=== PATIENT | male | born 1940 | race Caucasian/White ===

== ENCOUNTER 2021-06-14 09:59 | Inpatient (IN) | payer BC ==
[~2021-06-14] VITALS: Ht 177.8 cm; Wt 82.1 kg
[2021-06-14 10:37] LABS: BASOPHILS % 0.6 % (0.0-2.0); EOSINOPHILS % 0.7 % (0.0-5.0); HEMATOCRIT. 44.9 % (42.0-52.0); HEMOGLOBIN. 15.1 g/dL (14.0-18.0); LYMPHOCYTES % 21.8 % (20.0-50.0); MEAN CORPUSCULAR HEMOGLOBIN 31.9 pg (28.0-32.0); MEAN CORPUSCULAR VOLUME 94.8 fL (80.0-94.0); MEAN PLATELET VOLUME 6.6 fl (7.4-10.4); MONOCYTES % 11.5 % (2.0-8.0); NEUTROPHILS % 65.4 % (40.0-76.0); PLATELET 249 x1000/uL (130-400); RED BLOOD CELL COUNT 4.74 mill/uL (4.7-6.1); RED CELL DISTRIBUTION WIDTH 13.4 % (11.6-14.6)
[2021-06-14 10:46] LABS: CHLORIDE 105 mEq/L (98-107)
[2021-06-14 10:50] LABS: ETHANOL BLOOD < 10 mg/dL
[2021-06-14 10:53] LABS: LDL CHOLESTEROL 77 mg/dL (5-100)
[2021-06-14 10:59] LABS: INR 1.1; PROTHROMBIN TIME 11.8 sec (9.6-11.0)
[2021-06-14] MEDS ORDERED: LABETALOL 5MG/ML SYR 20 MG/4 ML SYRINGE IV ONE (11:00)
[2021-06-14 15:43] VITALS: BP 127/76
[2021-06-14] MEDS ORDERED: ACETAMINOPHEN 325MG TABLET PO PRN ×2 (15:45)
[2021-06-14] MEDS ORDERED: MAGNESIUM/ALUMINUM HYDROXIDE/SIMETHICONE 30ML UDC PO PRN (15:45)
[2021-06-14] MEDS ORDERED: IPRATROPIUM/ALBUTEROL 0.5-3(2.5)MG/3ML NEB NEB PRN (15:45)
[2021-06-14] MEDS ORDERED: DOCUSATE SODIUM 100MG CAPSULE PO PRN (15:45)
[2021-06-14] MEDS ORDERED: NA PHOS,M-B/NA PHOS,DI-BA ENEMA 118ML PR PRN (15:45)
[2021-06-14] MEDS ORDERED: GUAIFENESIN 200MG/10ML SUGAR FREE UDC PO PRN (15:45)
[2021-06-14] MEDS ORDERED: ZOLPIDEM TARTRATE 5MG TABLET PO PRN (15:45)
[2021-06-14] MEDS ORDERED: ONDANSETRON HCL 4MG/2ML INJ IV PRN (15:45)
[2021-06-14] MEDS ORDERED: NITROGLYCERIN 0.4MG TABLET SL SL PRN (15:45)
[2021-06-14] MEDS ORDERED: CLONIDINE 0.1MG TABLET PO PRN (15:45)
[2021-06-14] MEDS: ENOXAPARIN 40MG/0.4ML SYR SUBCUT SCH (17:00)
[2021-06-14] MEDS ORDERED: LIP40 PO (19:05)
[2021-06-14] MEDS ORDERED: LOSA50TA3 PO (19:05)
[2021-06-14] MEDS ORDERED: HYDR-3735 GT (19:05)
[2021-06-14 20:00] VITALS: BP 139/78
[2021-06-14] MEDS: FAMOTIDINE 20MG TABLET PO SCH (20:38)
[2021-06-14] MEDS: LISINOPRIL 20MG TABLET PO SCH (20:38)
[2021-06-14] MEDS: ASCORBIC ACID 500 MG TABLET PO SCH (20:39)
[2021-06-15] VITALS: BP 116/75
[2021-06-15 02:37] LABS: TOTAL IRON BINDING CAPACITY 244 ug/dL (250-450)
[2021-06-15 02:38] LABS: LDL CHOLESTEROL 85 mg/dL (5-100)
[2021-06-15 02:40] LABS: CREATINE KINASE 281 IU/L (39-308); HDL CHOLESTEROL 56 mg/dL (40-59)
[2021-06-15 02:42] LABS: CREATINE KINASE MB FRACTION 2.5 ng/mL (0.5-3.6)
[2021-06-15 03:40] LABS: FERRITIN 187 ng/mL (22-322)
[2021-06-15 04:00] VITALS: BP 128/77
[2021-06-15 07:10] LABS: EOSINOPHILS % 2.2 % (0.0-5.0); HEMATOCRIT. 44.9 % (42.0-52.0); HEMOGLOBIN. 15.5 g/dL (14.0-18.0); LYMPHOCYTES % 25.1 % (20.0-50.0); MEAN CORPUSCULAR HEMOGLOBIN 32.5 pg (28.0-32.0); MEAN CORPUSCULAR VOLUME 94.2 fL (80.0-94.0); MEAN PLATELET VOLUME 6.9 fl (7.4-10.4); MONOCYTES % 13.9 % (2.0-8.0); NEUTROPHILS % 57.8 % (40.0-76.0); PLATELET 255 x1000/uL (130-400); RED BLOOD CELL COUNT 4.77 mill/uL (4.7-6.1); RED CELL DISTRIBUTION WIDTH 13.3 % (11.6-14.6)
[2021-06-15 07:15] LABS: CHLORIDE 108 mEq/L (98-107)
[2021-06-15 07:24] LABS: PHOSPHORUS 3.6 mg/dL (2.5-4.9)
[2021-06-15 08:00] VITALS: BP 126/83
[2021-06-15] MEDS: ZINC SULFATE 220 MG ( 50 ) CAPSULE PO SCH (09:45)
[2021-06-15] MEDS: ASPIRIN 325MG EC TABLET PO SCH (09:45)
[2021-06-15] MEDS: ASCORBIC ACID 500 MG TABLET PO SCH ×2 (09:45→20:56)
[2021-06-15] MEDS: LISINOPRIL 20MG TABLET PO SCH ×2 (09:45→20:56)
[2021-06-15 12:00] VITALS: BP 136/98
[2021-06-15 16:00] VITALS: BP 131/78
[2021-06-15] MEDS: ENOXAPARIN 40MG/0.4ML SYR SUBCUT SCH (17:24)
[2021-06-15 20:00] VITALS: BP 105/56
[2021-06-15] MEDS: FAMOTIDINE 20MG TABLET PO SCH (20:56)
[2021-06-16] VITALS: BP 109/73
[2021-06-16 02:04] LABS: VITAMIN B12 SERUM 359 pg/mL (211-911)
[2021-06-16 03:07] LABS: FOLIC ACID (FOLATE) SERUM > 20.00 ng/mL (>5.38)
[2021-06-16 04:00] VITALS: BP 101/50
[2021-06-16 08:00] VITALS: BP 125/84
[2021-06-16] MEDS: ASPIRIN 325MG EC TABLET PO SCH (08:53)
[2021-06-16] MEDS: ASCORBIC ACID 500 MG TABLET PO SCH ×2 (08:53→21:20)
[2021-06-16] MEDS: ZINC SULFATE 220 MG ( 50 ) CAPSULE PO SCH (08:53)
[2021-06-16] MEDS: LISINOPRIL 20MG TABLET PO SCH ×2 (08:54→20:50)
[2021-06-16 12:00] VITALS: BP 115/70
[2021-06-16 16:00] VITALS: BP 111/63
[2021-06-16] MEDS: ENOXAPARIN 40MG/0.4ML SYR SUBCUT SCH (16:55)
[2021-06-16 20:00] VITALS: BP 107/58
[2021-06-16] MEDS: FAMOTIDINE 20MG TABLET PO SCH (21:20)
[2021-06-17] VITALS: BP 105/60
[2021-06-17 04:00] VITALS: BP 121/68
[2021-06-17 08:00] VITALS: BP 117/77
[2021-06-17] MEDS: ASCORBIC ACID 500 MG TABLET PO SCH ×2 (09:26→21:26)
[2021-06-17] MEDS: ZINC SULFATE 220 MG ( 50 ) CAPSULE PO SCH (09:27)
[2021-06-17] MEDS: ASPIRIN 325MG EC TABLET PO SCH (09:27)
[2021-06-17] MEDS: LISINOPRIL 20MG TABLET PO SCH ×2 (09:27→21:00)
[2021-06-17 11:27] LABS: CLARITY URINE CLEAR (CLEAR); COLOR URINE YELLOW (YELLOW); KETONES URINE NEGATIVE (NEGATIVE); LEUKOCYTE ESTERASE URINE NEGATIVE (NEGATIVE); NITRITE URINE NEGATIVE (NEGATIVE); OCCULT BLOOD URINE NEGATIVE (NEGATIVE); PH URINE 5.5 (4.5-8.0); PROTEIN URINE NEGATIVE (NEGATIVE); SPECIFIC GRAVITY URINE 1.023 (1.005-1.030); UROBILINOGEN URINE 0.2 E.U./dL (0.2-1.0)
[2021-06-17 12:00] VITALS: BP 120/79
[2021-06-17 16:00] VITALS: BP 91/45
[2021-06-17] MEDS: ENOXAPARIN 40MG/0.4ML SYR SUBCUT SCH (16:46)
[2021-06-17 20:00] VITALS: BP 99/62
[2021-06-17] MEDS: FAMOTIDINE 20MG TABLET PO SCH (21:26)
[2021-06-17 22:57] LABS: *AMPHETAMINES SCREEN URINE NEGATIVE (NEGATIVE); *BARBITURATES SCREEN URINE NEGATIVE (NEGATIVE); *BENZODIAZEPINES SCREEN URINE NEGATIVE (NEGATIVE); *COCAINE SCREEN URINE NEGATIVE (NEGATIVE)
[2021-06-17 22:58] LABS: CANNABINOID URINE SCREEN NEGATIVE (NEGATIVE); METHADONE URINE SCREEN NEGATIVE (NEGATIVE); OPIATES URINE SCREEN NEGATIVE (NEGATIVE); PHENCYCLIDINE URINE SCREEN NEGATIVE (NEGATIVE)
[2021-06-18] VITALS: BP 109/73
[2021-06-18 04:00] VITALS: BP 95/59
[2021-06-18 08:00] VITALS: BP 128/86
[2021-06-18] MEDS: ASCORBIC ACID 500 MG TABLET PO SCH (09:12)
[2021-06-18] MEDS: ZINC SULFATE 220 MG ( 50 ) CAPSULE PO SCH (09:12)
[2021-06-18] MEDS: ASPIRIN 325MG EC TABLET PO SCH (09:12)
[2021-06-18] MEDS: LISINOPRIL 20MG TABLET PO SCH (09:13)
[2021-06-18 12:00] VITALS: BP 114/74
[2021-06-18] MEDS ORDERED: ASPI-1497 MT (12:12)
[2021-06-18 12:13] VITALS: BP 128/86
== END 2021-06-18 12:34 | disposition home or self-care (01) | DRG 92 ==
LOC: ER 10:18 → 8WST 11:39 → EDBEDREQ 11:47 → EDBEDREQSVC 11:47 → ENRESERV 14:18
PROVIDERS: ADMIT Internal Medicine; ATTEND Internal Medicine
DX: G92.8 Other toxic encephalopathy (principal); E44.1 Mild protein-calorie malnutrition; I10 Essential (primary) hypertension; Z68.26 Body mass index [BMI] 26.0-26.9, adult; Z79.899 Other long term (current) drug therapy
CPT/HCPCS: 36415; 70496; 70498; 70551; 71045; 80053; 80061; 80305; 80320; 81003; 82550; 82553; 82607; 82728; 82746; 83036; 83540; 83550; 83605; 83721; 83735; 84100; 84132; 84145; 84484; 85025; 85379; 93005; 93970; 97161; 97166; 99291; J1650; J3490; A4315; G0480